=== PATIENT | male | born 1965 | race African-American/Black ===

== ENCOUNTER 2018-03-13 16:20 | Emergency (ER) | payer OTHER ==
[~2018-03-13] VITALS: Ht 190.5 cm; Wt 89.8 kg
[2018-03-13 16:29] VITALS: BP 137/95
== END 2018-03-13 18:42 | disposition home or self-care (01) ==
LOC: ER 16:25
DX: H11.31 Conjunctival hemorrhage, right eye (principal); Z88.0 Allergy status to penicillin; Z87.891 Personal history of nicotine dependence; W21.05XA Struck by basketball, initial encounter; Y93.67 Activity, basketball; Y92.89 Other specified places as the place of occurrence of the external cause; Y99.8 Other external cause status